=== PATIENT | male | born 1960 | race Caucasian/White ===

== ENCOUNTER 2021-11-07 22:55 | Emergency (ER) | payer MEDICARE, MEDICAID, SELFPAY ==
[2021-11-07 22:59] VITALS: BP 137/76; PULSE 91; RESP 18; TEMP 36; O2SAT 98; BMI 37.3
--- NOTE | 2021-11-07 23:22 | EDS_ITS ---
HPI HPI - Psych History of Present Illness Chief Complaint: Suicidal Informant: patient Narrative Narrative: Patient presents via EMS from senior care secondary to suicidal ideation. He states he is been at [facility] for the last 3-1/2 years. He reports being in and out of psychiatric facilities for medication adjustments. He states his PCP recently increased his Ativan help with anxiety but he feels that is not working anymore. He does not have a specific plan at this time only because he has not been able to think of any way to hurt himself at the senior care. He has tried to overdose in the past. [facility] Medical History AF (atrial fibrillation) Alcohol abuse Antisocial personality disorder Attention-deficit hyperactivity disorder, unspecified type Benign prostatic hyperplasia with lower urinary tract symptoms Bilateral primary osteoarthritis of knee Borderline personality disorder COPD (chronic obstructive pulmonary disease) COVID-19 Depression Dorsalgia, unspecified Generalized anxiety disorder Hyperlipidemia, unspecified Hypertension Hypothyroidism Obstructive sleep apnea (adult) (pediatric) Other schizophrenia Personal history of traumatic brain injury Post-traumatic stress disorder, unspecified Type 2 diabetes mellitus without complications Home Medications acetaminophen 1,000 mg PO DAILY 11/07/21 [History Last Taken Unknown] amlodipine 5 mg PO DAILY 11/07/21 [History Last Taken Unknown] apixaban [Eliquis] 5 mg PO BID 11/07/21 [History Last Taken Unknown] aripiprazole [Abilify] 10 mg PO BID 11/07/21 [History Last Taken Unknown] aspirin 81 mg PO DAILY 11/07/21 [History Last Taken Unknown] atorvastatin [Lipitor] 20 mg PO QHS 11/07/21 [History Last Taken Unknown] cholecalciferol (vitamin D3) 25 mcg PO DAILY 11/07/21 [History Last Taken Unknown] cyanocobalamin (vitamin B-12) 1,000 mcg PO DAILY 11/07/21 [History Last Taken Unknown] doxepin 25 mg PO QHS 11/07/21 [History Last Taken Unknown] loratadine [Claritin] 10 mg PO DAILY 11/07/21 [History Last Taken Unknown] lorazepam [Ativan] 2 mg PO DAILY 11/07/21 [History Last Taken Unknown] losartan 50 mg PO BID 11/07/21 [History Last Taken Unknown] melatonin 9 mg PO QHS 11/07/21 [History Last Taken Unknown] metformin 1,000 mg PO BID 11/07/21 [History Last Taken Unknown] metoprolol tartrate [Lopressor] 50 mg PO BID 11/07/21 [History Last Taken Unknown] mirtazapine [Remeron] 15 mg PO QHS 11/07/21 [History Last Taken Unknown] mometasone 2 puff INHALATION DAILY 11/07/21 [History Last Taken Unknown] multivitamin 1 tab PO DAILY 11/07/21 [History Last Taken Unknown] omeprazole 20 mg PO DAILY 11/07/21 [History Last Taken Unknown] oxybutynin chloride [Ditropan XL] 15 mg PO DAILY 11/07/21 [History Last Taken Unknown] paliperidone [Invega] 6 mg PO BID 11/07/21 [History Last Taken Unknown] prazosin [Minipress] 6 mg PO QHS 11/07/21 [History Last Taken Unknown] tamsulosin [Flomax] 0.4 mg PO BID 11/07/21 [History Last Taken Unknown] tramadol 100 mg PO DAILY 11/07/21 [History Last Taken Unknown] trazodone 50 mg PO QHS 11/07/21 [History Last Taken Unknown] Allergy/AdvReac Type Severity Reaction Status Date / Time bupropion [From Wellbutrin] Allergy Other Verified 11/07/21 22:59 fluoxetine [From Prozac] Allergy Other Verified 11/07/21 22:57 lactose Allergy PT UNSURE Verified 11/07/21 22:59 OF REACTION paroxetine [From Paxil] Allergy Other Verified 11/07/21 22:57 sertraline [From Zoloft] Allergy Other Verified 11/07/21 22:59 Surgical History no surgical history Social History Smoking Status: Current every day smoker tobacco type: cigarettes ROS ROS ED Constitutional Constitutional ED: Denies chills or fever(s) Eyes Eyes: Denies change in vision ENT ENT ED: Denies sore throat Cardiovascular Cardiovascular: Denies chest pain Respiratory/Chest Respiratory/Chest: Denies cough or dyspnea Gastrointestinal Gastrointestinal: Denies abdominal pain, diarrhea, nausea or vomiting Musculoskeletal Musculoskeletal: Denies back pain or neck pain Integumentary Denies rash Neurologic Neurologic: Denies headache(s) or weakness Psychiatric Psychiatric: Reports anxiety, depression and suicidal thoughts Endocrine Endocrinology: Denies polydipsia or polyuria Allergic/Immunologic Allergic/Immunologic ED: Denies urticaria EXAM Physical Exam Const Vital Signs: 11/07/21 22:59 11/07/21 23:56 11/08/21 00:56 Temperature 96.8 F L Temperature Source Temporal Pulse Rate 91 Respiratory Rate 18 14 14 Blood Pressure 137/76 H Blood Pressure Mean 96 Pulse Ox 98 Oxygen Delivery Method Room Air 11/08/21 01:00 11/08/21 02:00 11/08/21 03:00 Temperature Temperature Source Pulse Rate Respiratory Rate 14 16 16 Blood Pressure Blood Pressure Mean Pulse Ox Oxygen Delivery Method 11/08/21 03:54 11/08/21 05:00 11/08/21 06:17 Temperature 97.8 F Temperature Source Oral Pulse Rate 74 Respiratory Rate 16 16 16 Blood Pressure 115/55 L Blood Pressure Mean 75 Pulse Ox 96 Oxygen Delivery Method Room Air Positive well nourished and well developed General Appearance ED: well developed HEENT normocephalic and atraumatic Eyes PERRL and EOMs intact bilaterally Neck supple Resp normal respiratory effort and clear to auscultation bilaterally Cardio Rate: regular rate Rhythm: regular rhythm GI non-tender and non-distended Auscultation: normoactive bowel sounds Palpation: soft Extremity normal to inspection Neuro oriented x3 Sensorium / Orientation: alert Psych Appearance: grossly normal Attitude: calm Activity / Motor Behavior: avoids eye contact Mood & Affect: depressed Attention / Concentration: attention grossly intact Memory / Cognition: memory grossly intact Skin Lesions: no lesions Rashes: no rashes MDM MDM MDM Narrative Medical decision making narrative: Labs for psychiatric clearance obtained. Patient kept on his normal medication regimen. Lab Data Attestation: I reviewed the patient's lab results. Labs: Laboratory Results - last 24 hr 11/07/21 11/07/21 11/07/21 23:33 23:33 23:33 WBC 8.8 RBC 4.39 L Hgb 14.4 Hct 40.7 MCV 92.7 MCH 32.8 H MCHC 35.4 RDW Std Deviation 43.0 RDW Coeff of Carlos 12.6 Plt Count 241 MPV 10.1 Immature Gran % (Auto) 1.800 H Neut % (Auto) 63.9 Lymph % (Auto) 23.5 [place] % (Auto) 8.1 Eos % (Auto) 2.4 Baso % (Auto) 0.3 Absolute Neuts (auto) 5.6 Absolute Lymphs (auto) 2.07 Nucleated RBC % 0.2 Sodium 139 Potassium 4.1 Chloride 103 Carbon Dioxide 27.0 Anion Gap 9 BUN 13 Creatinine 0.87 Estim Creat Clear Calc 90.90 Est GFR (MDRD) Af Amer 114 Est GFR (MDRD) Non-Af 94 BUN/Creatinine Ratio 14.9 Glucose 132 H Calcium 9.6 Urine Opiates Screen Urine Methadone Screen Ur Barbiturates Screen Ur Phencyclidine Scrn Ur Amphetamines Screen MDMA (Ecstasy) Screen U Benzodiazepines Scrn Urine Cocaine Screen U Cannabinoids Screen Ur Drug Screen Comment Ethyl Alcohol 8.0 POC Glucose 11/07/21 11/08/21 23:45 06:14 WBC RBC Hgb Hct MCV MCH MCHC RDW Std Deviation RDW Coeff of Carlos Plt Count MPV Immature Gran % (Auto) Neut % (Auto) Lymph % (Auto) [place] % (Auto) Eos % (Auto) Baso % (Auto) Absolute Neuts (auto) Absolute Lymphs (auto) Nucleated RBC % Sodium Potassium Chloride Carbon Dioxide Anion Gap BUN Creatinine Estim Creat Clear Calc Est GFR (MDRD) Af Amer Est GFR (MDRD) Non-Af BUN/Creatinine Ratio Glucose Calcium Urine Opiates Screen NEGATIVE Urine Methadone Screen NEGATIVE Ur Barbiturates Screen NEGATIVE Ur Phencyclidine Scrn NEGATIVE Ur Amphetamines Screen NEGATIVE MDMA (Ecstasy) Screen NEGATIVE U Benzodiazepines Scrn NEGATIVE Urine Cocaine Screen NEGATIVE U Cannabinoids Screen NEGATIVE Ur Drug Screen Comment Ethyl Alcohol POC Glucose 110 H Treatment and Re-Evaluation Narrative: Lab work unremarkable and tox screen negative. COVID test is negative. Patient discussed with crisis. Discharge Plan Triage Chief Complaint: Suicidal ED Provider: Viridiana Bentley Dx/Rx/DC Orders Clinical Impression: Suicidal ideation Prescriptions: No Action multivitamin Tablet 1 tab PO DAILY RF: 0 losartan 50 mg Tablet 50 mg PO BID RF: 0 oxybutynin chloride [Ditropan XL] 15 mg Tablet Extended Release 24hr 15 mg PO DAILY RF: 0 atorvastatin [Lipitor] 20 mg Tablet 20 mg PO QHS RF: 0 trazodone 50 mg Tablet 50 mg PO QHS RF: 0 doxepin 25 mg Capsule 25 mg PO QHS RF: 0 amlodipine 5 mg Tablet 5 mg PO DAILY RF: 0 tamsulosin [Flomax] 0.4 mg Capsule 0.4 mg PO BID RF: 0 lorazepam [Ativan] 2 mg Tablet 2 mg PO DAILY RF: 0 metformin 1,000 mg Tablet 1,000 mg PO BID RF: 0 metoprolol tartrate [Lopressor] 50 mg Tablet 50 mg PO BID RF: 0 omeprazole 20 mg Capsule,Delayed Release(Dr/Ec) 20 mg PO DAILY RF: 0 mirtazapine [Remeron] 15 mg Tablet 15 mg PO QHS RF: 0 acetaminophen 500 mg Capsule 1,000 mg PO DAILY RF: 0 loratadine [Claritin] 10 mg Tablet 10 mg PO DAILY RF: 0 prazosin [Minipress] 2 mg Capsule 6 mg PO QHS RF: 0 aripiprazole [Abilify] 10 mg Tablet 10 mg PO BID RF: 0 paliperidone [Invega] 6 mg Tablet Extended Release 24hr 6 mg PO BID RF: 0 Eliquis 5 mg Tablet 5 mg PO BID RF: 0 melatonin 10 mg Capsule 9 mg PO QHS RF: 0 mometasone 50 mcg/actuation Hfa Aerosol Inhaler 2 puff INHALATION DAILY RF: 0 tramadol 100 mg Tablet 100 mg PO DAILY RF: 0 aspirin 81 mg Capsule 81 mg PO DAILY RF: 0 cholecalciferol (vitamin D3) 25 mcg (1,000 unit) Capsule 25 mcg PO DAILY RF: 0 cyanocobalamin (vitamin B-12) 1,000 mcg Capsule 1,000 mcg PO DAILY RF: 0 Primary Care Provider: Arslan Sim Referrals: Arslan Sim MD [Primary Care Provider] - Disposition Disposition: Psychiatric Hospital or Unit Discharge Location: [facility]
[2021-11-07 23:42] LABS: Absolute Lymphocyte Count 2.07 X10^3/uL (0.83-4.51); Absolute Neutrophil Count 5.6 X10^3/uL (2.0-7.7); Basophil# 0.03 X10^3/uL; Basophil% 0.3 % (0-1); Eosinophil# 0.21 X10^3/uL; Eosinophils% 2.4 % (0-5); Hematocrit 40.7 % (40-54); Hemoglobin 14.4 g/dL (13.0-16.5); Lymphocyte # 2.07 X10^3/ul (0.83-4.51); Lymphocyte % 23.5 % (19-41); Mean Corp Hgb Conc 35.4 g/dL (32-36); Mean Corpuscular Hgb 32.8 pg (27.0-32.0); Mean Corpuscular Volume 92.7 fL (80-94); Mean Platelet Vol. 10.1 fl (6.2-12.0); Monocyte# 0.71 X10^3/uL; Monocyte% 8.1 % (0-10); NRBC Flagged by Analyzer 0.2 % (0-5); Neutrophil # 5.62 X10^3/uL (2.7-7.7); Neutrophil % 63.9 % (47-70); Platelet Count 241 K/mm3 (150-450); RBC Distribution Width CV 12.6 % (11.6-14.6); Red Blood Count 4.39 M/mm3 (4.6-6.2); White Blood Count 8.8 K/mm3 (4.4-11.0)
[2021-11-07 23:56] VITALS: RESP 14
[2021-11-08] VITALS (9 sets, daily range): BP systolic 115–146; BP diastolic 55–76; PULSE 74–100; RESP 14–16; TEMP 36.6; O2SAT 95–97
[2021-11-08] MEDS: LORazepam 1 MG Tablet 2 MG PO (00:02)
[2021-11-08 00:03] LABS: Anion Gap 9 (5-15); BUN 13 mg/dL (7-18); BUN/Creat Ratio 14.9 RATIO (10-20); Calcium,Total 9.6 mg/dL (8.5-10.1); Chloride 103 mmol/L (98-107); Creatinine, Serum 0.87 mg/dL (0.70-1.30); EST Glomerular Filtration Rate 94 mL/min (>60); Est Glom Filt Rate - Afr Amer 114 mL/min (>60); Glucose 132 mg/dL (74-106); Potassium 4.1 mmol/L (3.5-5.1); Sodium Level 139 mmol/L (136-145)
[2021-11-08 00:20] LABS: Amphetamine Urine VISTA NEGATIVE (<1000 ng/mL); Barbiturate Urine VISTA NEGATIVE (< 200 ng/mL); Benzodiazepine Urine VISTA NEGATIVE (< 200 ng/mL); Cocaine Urine VISTA NEGATIVE (< 300 ng/mL); Ecstacy Urine VISTA NEGATIVE (< 500 ng/mL); Methadone Urine VISTA NEGATIVE (< 300 ng/mL); PCP Urine VISTA NEGATIVE (< 25 ng/mL); THC Urine VISTA NEGATIVE (< 50 ng/mL); Vista UDS pH Range 6
--- NOTE | 2021-11-08 02:41 | ED.RN ---
charted faxed to crisis at this time
--- NOTE | 2021-11-08 06:24 | EKG12_ITS ---
Test Reason : MEDICAL CLEARANCE Blood Pressure : / mmHG Vent. Rate : 087 BPM Atrial Rate : 087 BPM P-R Int : 160 ms QRS Dur : 094 ms QT Int : 360 ms P-R-T Axes : 057 045 057 degrees QTc Int : 433 ms Normal sinus rhythm Nonspecific ST abnormality Abnormal ECG Confirmed by GREGORIA RIVERA, JERMAIN ([id number]), order editor ROMI JOINER ([id number]) on 11/11/2021 10:05:39 A M Referred By: SALINAS Confirmed By:TRISTIN KINNEY MD
[2021-11-08 06:31] LABS: Bedside Glucose 110 mg/dL (74-106)
[2021-11-08] MEDS: ARIPiprazole 10 MG Tablet PO (08:11)
[2021-11-08] MEDS: Cyanocobalamin 500 MCG Tablet 1000 MCG PO (08:11)
[2021-11-08] MEDS: Metoprolol Tartrate 50 MG Tablet PO (08:12)
[2021-11-08] MEDS: Loratadine 10 MG Tablet PO (08:12)
[2021-11-08] MEDS: Multivitamins,Therapeutic Tablet 1 TABLET PO (08:12)
[2021-11-08] MEDS: Tolterodine Tartrate 4 MG CAP.SA PO (08:12)
[2021-11-08] MEDS: Cholecalciferol (VIT D3) 25 MCG TABLET (1,000 UNITS) PO (08:12)
[2021-11-08] MEDS: metFORMIN HCl 1,000 MG Tablet 1000 MG PO (08:12)
[2021-11-08] MEDS: Losartan Potassium 50 MG Tablet PO (08:13)
[2021-11-08] MEDS: Tamsulosin HCl 0.4 MG Capsule 0.8 MG PO (08:13)
[2021-11-08] MEDS: Acetaminophen 500 MG Tablet 1000 MG PO (08:13)
[2021-11-08] MEDS: amLODIPine 5 MG Tablet PO (08:13)
[2021-11-08] MEDS: APIXABAN 5 MG TABLET PO (08:14)
[2021-11-08] MEDS: Pantoprazole Sodium 20 MG Tablet PO (08:14)
[2021-11-08] MEDS: Aspirin 81 MG TAB.CHEW PO (08:14)
[2021-11-08] MEDS: traMADol 50 MG Tablet 100 MG PO (08:14)
--- NOTE | 2021-11-08 10:07 | NURSING ---
PHYSICIANS ETA 5-6 HOURS AT THIS TIME
--- NOTE | 2021-11-08 12:28 | ED.RN ---
Report given to
== END 2021-11-08 12:28 ==
PROVIDERS: Emergency Provider Emergency Medicine; PCP Family Medicine; Visit Provider Emergency Medicine
DX: R45.851 Suicidal ideations (principal); F20.89 Other schizophrenia; J44.9 Chronic obstructive pulmonary disease, unspecified; F60.2 Antisocial personality disorder; I48.91 Unspecified atrial fibrillation; E11.9 Type 2 diabetes mellitus without complications; I10 Essential (primary) hypertension; E78.5 Hyperlipidemia, unspecified; F32.A Depression, unspecified; F41.1 Generalized anxiety disorder; F43.10 Post-traumatic stress disorder, unspecified; F90.9 Attention-deficit hyperactivity disorder, unspecified type; F17.210 Nicotine dependence, cigarettes, uncomplicated; Z79.01 Long term (current) use of anticoagulants; Z79.82 Long term (current) use of aspirin; Z79.84 Long term (current) use of oral hypoglycemic drugs; Z79.899 Other long term (current) drug therapy; Z87.820 Personal history of traumatic brain injury; Z86.16 Personal history of COVID-19
CPT/HCPCS: 36415; 80048; 80307; 82077; 82962; 85025; 87811; 93005; 99284